=== PATIENT | male | born 1980 | race Native Hawaiian/Other Pacific Islander ===

== ENCOUNTER 2023-08-16 10:05 | Emergency (ER) | payer OTHER ==
[~2023-08-16] VITALS: Ht 182.9 cm; Wt 90.7 kg
[~2023-08-16 10:05] MED LIST: ALBU90OI INH; METPRE4DP PO; ROBITUSSIN COU237 ML PO
[2023-08-16 10:45] VITALS: BP 141/86
== END 2023-08-16 12:24 | disposition home or self-care (01) ==
LOC: ER 10:05
DX: S10.96XA Insect bite of unspecified part of neck, initial encounter (principal); W57.XXXA Bitten or stung by nonvenomous insect and other nonvenomous arthropods, initial encounter; F17.210 Nicotine dependence, cigarettes, uncomplicated
CPT/HCPCS: 99282